=== PATIENT | female | born 1990 | race Caucasian/White ===

== ENCOUNTER 2016-02-26 15:18 | Emergency (ER) | payer SELFPAY ==
--- NOTE | 2016-02-26 15:32 | ER Document Report ---
ED Medical Screen (RME) - General Stated Complaint: FEVER,SORETHROAT,COUGH Mode of Arrival: Ambulatory Information source: Patient Notes: She presents to the emergency department with complaints of cough congestion sore throat and fever of 104 last night. She reports she took Tylenol this morning. Denies vomiting or diarrhea. Patient reports exposure to strep. I have greeted and performed a rapid initial assessment of this patient. A comprehensive ED assessment and evaluation of the patient, analysis of test results and completion of the medical decision making process will be conducted by additional ED providers. TRAVEL OUTSIDE OF THE [place] IN LAST 30 DAYS: No - Related Data Allergies/Adverse Reactions: ketorolac tromethamine [From Toradol] Allergy (Severe, Verified 02/26/16 15:30) throat and tongue swelling lamotrigine [From Lamictal] Allergy (Severe, Verified 02/26/16 15:30) throat and tongue swelling, headache tramadol [Tramadol] Allergy (Severe, Verified 02/26/16 15:30) Hives & tongue swelling benzonatate [From Tessalon Perles] Adverse Reaction (Mild, Verified 02/26/16 15: 30) Vomiting Past Medical History - Social History Family history: Reviewed & Not Pertinent Pulmonary Medical History: Reports: Hx Asthma, Hx COPD, Hx Pneumonia - 2013 Neurological Medical History: Reports: Hx Migraine Renal/ Medical History: Reports: Hx Kidney Stones, Hx Ovarian Cysts - Not substantiated on multiple ultrasounds here GI Medical History: Reports: Hx Gastroesophageal Reflux Disease Musculoskeltal Medical History: Reports Hx Musculoskeletal Trauma Psychiatric Medical History: Reports: Hx Attention Deficit Hyperactivity Disorder, Hx Bipolar Disorder, Hx Depression Traumatic Medical History: Reports: Hx Fractures Past Surgical History: Reports: Hx Cholecystectomy - 10-25-14. Denies: Hx Mastectomy, Hx Open Heart Surgery - Immunizations Immunizations up to date: Yes Hx Diphtheria, Pertussis, Tetanus Vaccination: Yes - 11/15/12
--- NOTE | 2016-02-26 16:31 | ER Document Report ---
HPI - HPI Patient complains to provider of: sore throat, cough, fever Onset: Other - 2 days Pain Level: 5 Context: 25-year-old smoker complaining of head congestion and chest congestion , cough, sore throat , fever of 104.1 at home. Chest pain or shortness of breath. She does not have any inhaled bronchodilators at home. History of asthma, COPD , pneumonia. Associated Symptoms: None Exacerbated by: Denies Relieved by: Denies Similar symptoms previously: Yes Recently seen / treated by doctor: No - ROS ROS below otherwise negative: Yes Systems Reviewed and Negative: Yes All other systems reviewed and negative - REPRODUCTIVE Reproductive: DENIES: : - DERM Skin Color: Normal Past Medical History - General Information source: Patient - Social History Smoking Status: Current Every Day Smoker Chew tobacco use (# tins/day): No Frequency of alcohol use: None Drug Abuse: None Lives with: Family Family History: Arthritis, CAD, CVA, DM, Hyperlipidemia, Hypertension, Malignancy, Thyroid Disfunction Patient has suicidal ideation: No Patient has homicidal ideation: No Pulmonary Medical History: Reports: Hx Asthma, Hx COPD, Hx Pneumonia - 2013 Neurological Medical History: Reports: Hx Migraine Renal/ Medical History: Reports: Hx Kidney Stones, Hx Ovarian Cysts - Not substantiated on multiple ultrasounds here. Denies: Hx Peritoneal Dialysis GI Medical History: Reports: Hx Gastroesophageal Reflux Disease Musculoskeltal Medical History: Reports Hx Musculoskeletal Trauma Psychiatric Medical History: Reports: Hx Attention Deficit Hyperactivity Disorder, Hx Bipolar Disorder, Hx Depression Traumatic Medical History: Reports: Hx Fractures Past Surgical History: Reports: Hx Cholecystectomy - 10-25-14. Denies: Hx Mastectomy, Hx Open Heart Surgery - Immunizations Immunizations up to date: Yes Hx Diphtheria, Pertussis, Tetanus Vaccination: Yes - 11/15/12 Hx Pneumococcal Vaccination: 11/15/12 Vertical Provider Document - CONSTITUTIONAL Agree With Documented VS: Yes Exam Limitations: No Limitations - INFECTION CONTROL TRAVEL OUTSIDE OF THE [place] IN LAST 30 DAYS: No - HEENT HEENT: Normocephalic - NECK Neck: Supple. negative: Lymphadenopathy-Left, Lymphadenopathy-Right - RESPIRATORY Respiratory: No Respiratory Distress, Wheezing - Expiratory on the left. negative: Rales O2 Sat by Pulse Oximetry: 97 - CARDIOVASCULAR Cardiovascular: Regular Rate, Regular Rhythm - GI/ABDOMEN Gastrointestinal: Abdomen Soft, Abdomen Non-Tender, No Organomegaly - BACK Back: Normal Inspection. negative: CVA Tenderness-Right, CVA Tenderness-Left - MUSCULOSKELETAL/EXTREMETIES Musculoskeletal/Extremeties: MAEW, FROM, Non-Tender Course - Re-evaluation Re-evalutation: 02/26/16 16:48 Rapid strep is negative. There is expiratory wheezing on the left. ordered duoneb, chest xray. 02/26/16 17:50 Lungs clear after treatment. X-rays negative - Vital Signs Vital signs: Temp Pulse Resp BP Pulse Ox 98.4 F 93 18 133/86 H 97 02/26/16 15:30 02/26/16 15:30 02/26/16 15:30 02/26/16 15:30 02/26/16 15:30 Discharge - Discharge Clinical Impression: Bronchitis, fever at home, Sore throat Condition: Good Disposition: HOME, SELF-CARE Instructions: Stop Smoking ([facility]), Bronchitis With Bronchospasm (Wheezing) ([facility]) , Inhaled Bronchodilators ([facility]), Steroid Medication, Acetaminophen, Fever ([facility]) Additional Instructions: to er if worse Stop smoking Drink plenty of fluids Use the inhaler throat culture pending Prescriptions: Albuterol Sulfate [Proair HFA Inhalation Aerosol 8.5 gm MDI] 2 puff IH Q3HP PRN #1 [email or web address] PRN Reason: Forms: Return to Work Referrals: SISI SHERWOOD MD [Primary Care Provider] - Follow up as needed
[2016-02-26] MEDS ORDERED: IPRATROPIUM/ALBUTEROL 0.5-2.5 MG/3 ML AMPUL NEB ONE (16:37)
[2016-02-26] MEDS ORDERED: PREDNISONE 20 MG TABLET PO ONE (16:48)
[2016-02-26] MEDS ORDERED: ALBUTEROL SULFATE HFA (90 MCG/PUFF) 200 PUFF/8.5 GM MDI IH ONE (17:54)
[2016-02-26 18:07] VITALS: BP 130/72
== END 2016-02-26 18:00 | disposition home or self-care (01) ==
LOC: ER 15:18
DX: J40 Bronchitis, not specified as acute or chronic (principal); R50.9 Fever, unspecified; J02.9 Acute pharyngitis, unspecified; R05 Cough; R06.02 Shortness of breath; R07.9 Chest pain, unspecified; F17.210 Nicotine dependence, cigarettes, uncomplicated
CPT/HCPCS: 94640; 99283; 87070; 87880; 71020; J7512; J3490; J7620

== ENCOUNTER 2016-04-14 14:27 | Emergency (ER) | payer OTHER ==
--- NOTE | 2016-04-14 14:48 | ER Document Report ---
ED Medical Screen (RME) - General Stated Complaint: STOMACH PAIN Time seen by provider: 14:44 Mode of Arrival: Ambulatory Information source: Patient Notes: 25-year-old is complaining of pelvic pain and cramping with bleeding every other week since her Nexplanon was taken out in February. Home test was negative. I have greeted and performed a rapid initial assessment of this patient. A comprehensive ED assessment, evaluation of the patient, analysis of test results , and completion of the medical decision making process will be conducted by additional ED providers. TRAVEL OUTSIDE OF THE [place] IN LAST 30 DAYS: No - Related Data Allergies/Adverse Reactions: ketorolac tromethamine [From Toradol] Allergy (Severe, Verified 04/14/16 14:42) throat and tongue swelling lamotrigine [From Lamictal] Allergy (Severe, Verified 04/14/16 14:42) throat and tongue swelling, headache tramadol [Tramadol] Allergy (Severe, Verified 04/14/16 14:42) Hives & tongue swelling benzonatate [From Tessalon Perles] Adverse Reaction (Mild, Verified 04/14/16 14: 42) Vomiting Past Medical History - Social History Family history: Reviewed & Not Pertinent Pulmonary Medical History: Reports: Hx Asthma, Hx COPD, Hx Pneumonia - 2013 Neurological Medical History: Reports: Hx Migraine Renal/ Medical History: Reports: Hx Kidney Stones, Hx Ovarian Cysts - Not substantiated on multiple ultrasounds here. Denies: Hx Peritoneal Dialysis GI Medical History: Reports: Hx Gastroesophageal Reflux Disease Musculoskeltal Medical History: Reports Hx Musculoskeletal Trauma Psychiatric Medical History: Reports: Hx Attention Deficit Hyperactivity Disorder, Hx Bipolar Disorder, Hx Depression Traumatic Medical History: Reports: Hx Fractures Past Surgical History: Reports: Hx Cholecystectomy - 10-25-14. Denies: Hx Mastectomy, Hx Open Heart Surgery - Immunizations Immunizations up to date: Yes Hx Diphtheria, Pertussis, Tetanus Vaccination: Yes - 11/15/12 Physical Exam - Vital signs Vitals: Temp Pulse Resp BP Pulse Ox 98.2 F 87 16 120/73 97 04/14/16 14:32 04/14/16 14:32 04/14/16 14:32 04/14/16 14:32 04/14/16 14:32 Course - Vital Signs Vital signs: Temp Pulse Resp BP Pulse Ox 98.2 F 87 16 120/73 97 04/14/16 14:32 04/14/16 14:32 04/14/16 14:32 04/14/16 14:32 04/14/16 14:32
[2016-04-14 15:24] LABS: ABSOLUTE EOSINOPHILS # (AUTO) 0.2 10^3/uL (0.0-0.6); ABSOLUTE LYMPHOCYTES (AUTO) 2.3 10^3/uL (0.5-4.7); ABSOLUTE MONOCYTES (AUTO) 0.6 10^3/uL (0.1-1.4); ABSOLUTE NEUT (AUTO) 5.3 10^3/uL (1.7-8.2); BASOPHILS % (AUTO) 0.3 % (0-2); EOSINOPHILS % (AUTO) 2.6 % (0-6); HEMATOCRIT 43.3 % (36.0-47.0); HEMOGLOBIN 14.6 g/dL (12.0-15.5); HGB HCT DIFFERENCE 0.5; LYMPHOCYTES % (AUTO) 26.8 % (13-45); MEAN CORPUSCULAR HEMOGLOBIN 29.3 pg (27.0-33.4); MEAN CORPUSCULAR HGB CONC 33.8 g/dL (32.0-36.0); MEAN CORPUSCULAR VOLUME 87 fl (80-97); MONOCYTES % (AUTO) 7.5 % (3-13); RED BLOOD COUNT 4.99 10^6/uL (3.72-5.28); RED CELL DISTRIBUTION WIDTH 14.1 % (11.5-14.0); SEGMENTED NEUTROPHILS % (AUTO) 62.8 % (42-78); WHITE BLOOD COUNT 8.4 10^3/uL (4.0-10.5)
[2016-04-14 15:27] LABS: APPEARANCE,URINE CLEAR; BILIRUBIN,URINE NEGATIVE (NEGATIVE); GLUCOSE, URINE NEGATIVE (NEGATIVE); KETONES,URINE NEGATIVE (NEGATIVE); LEUKOCYTE ESTERASE,URINE NEGATIVE (NEGATIVE); NITRITE,URINE NEGATIVE (NEGATIVE); PROTEIN,URINE NEGATIVE (NEGATIVE); URINE SPECIFIC GRAVITY 1.013; UROBILINOGEN,URINE NEGATIVE mg/dL (<2.0)
[2016-04-14 16:55] LABS: CHLAM PCR DETECTED (NOT DETECT)
--- NOTE | 2016-04-14 18:48 | ER Document Report ---
ED General - General Chief Complaint: Lower Abdominal Pain Stated Complaint: STOMACH PAIN Mode of Arrival: Ambulatory Information source: Patient Notes: This is a 25-year-old female who presents with nausea vomiting and diarrhea for the past 2 days. Of note she states she had a fever at home today of 103. She denies any recent travel. She has not vomited in the past several hours. Of note she also reports heavy vaginal bleeding. She states that since having her control Implanon removed 2 months ago she has had irregular bleeding which has occurred about every 2 weeks. TRAVEL OUTSIDE OF THE [place] IN LAST 30 DAYS: No - Related Data Allergies/Adverse Reactions: ketorolac tromethamine [From Toradol] Allergy (Severe, Verified 04/14/16 14:42) throat and tongue swelling lamotrigine [From Lamictal] Allergy (Severe, Verified 04/14/16 14:42) throat and tongue swelling, headache tramadol [Tramadol] Allergy (Severe, Verified 04/14/16 14:42) Hives & tongue swelling benzonatate [From Tessalon Perles] Adverse Reaction (Mild, Verified 04/14/16 14: 42) Vomiting Past Medical History - General Information source: Patient - Social History Smoking Status: Current Every Day Smoker Chew tobacco use (# tins/day): Yes Family History: Arthritis, CAD, CVA, DM, Hyperlipidemia, Hypertension, Malignancy, Thyroid Disfunction Patient has suicidal ideation: No Patient has homicidal ideation: No Pulmonary Medical History: Reports: Hx Asthma, Hx COPD, Hx Pneumonia - 2013 Neurological Medical History: Reports: Hx Migraine Renal/ Medical History: Reports: Hx Kidney Stones, Hx Ovarian Cysts - Not substantiated on multiple ultrasounds here. Denies: Hx Peritoneal Dialysis GI Medical History: Reports: Hx Gastroesophageal Reflux Disease Musculoskeltal Medical History: Reports Hx Musculoskeletal Trauma Psychiatric Medical History: Reports: Hx Attention Deficit Hyperactivity Disorder, Hx Bipolar Disorder, Hx Depression Traumatic Medical History: Reports: Hx Fractures Past Surgical History: Reports: Hx Cholecystectomy - 10-25-14. Denies: Hx Mastectomy, Hx Open Heart Surgery - Immunizations Immunizations up to date: Yes Hx Diphtheria, Pertussis, Tetanus Vaccination: Yes - 11/15/12 Hx Pneumococcal Vaccination: 11/15/12 Review of Systems - Review of Systems Notes: REVIEW OF SYSTEMS: CONSTITUTIONAL : Denies recent illness. Fever today as per history of present illness EENT: Denies eye, ear, throat, or mouth pain or symptoms. Denies nasal or sinus congestion. CARDIOVASCULAR: Denies chest pain. RESPIRATORY: Denies cough, cold, or chest congestion. Denies shortness of breath, difficulty breathing, or wheezing. GASTROINTESTINAL: As per history of present illness GENITOURINARY: Denies difficulty urinating, painful urination, burning, frequency, or blood in urine. FEMALE GENITOURINARY: As per history of present illness MUSCULOSKELETAL: Denies neck or back pain or joint pain or swelling. SKIN: Denies rash or skin lesions. HEMATOLOGIC : Denies easy bruising or bleeding. LYMPHATIC: Denies swollen, enlarged glands. NEUROLOGICAL: Denies altered mental status or loss of consciousness. Denies headache. PSYCHIATRIC: Denies anxiety or stress or depression. ALL OTHER SYSTEMS REVIEWED AND NEGATIVE. Physical Exam - Vital signs Vitals: Temp Pulse Resp BP Pulse Ox 98.2 F 87 16 120/73 97 04/14/16 14:32 04/14/16 14:32 04/14/16 14:32 04/14/16 14:32 04/14/16 14:32 - Notes Notes: PHYSICAL EXAMINATION: GENERAL: Well-appearing, well-nourished and in no acute distress. Pleasant and conversant HEAD: Atraumatic, normocephalic. EYES: Pupils equal round and reactive to light, extraocular movements intact, sclera anicteric, conjunctiva are normal. ENT: nares patent, oropharynx clear without exudates. Moist mucous membranes. NECK: Normal range of motion, supple without lymphadenopathy LUNGS: Breath sounds clear to auscultation bilaterally and equal. No wheezes rales or rhonchi. HEART: Regular rate and rhythm without murmurs ABDOMEN: Soft, nontender, normoactive bowel sounds. No guarding, no rebound. No masses appreciated. PELVIC: No external lesions. Mild amount of blood in vault, no clots or tissue. Os closed. No CMT. Mild R adnexal TTP, no mass, no L adnexal TTP or mass EXTREMITIES: Normal range of motion, no pitting or edema. No cyanosis. NEUROLOGICAL: Cranial nerves grossly intact. Normal speech. No gross focal motor or sensory deficits appreciated PSYCH: Normal mood, normal affect. SKIN: Warm, Dry, normal turgor, no rashes or lesions noted. Course - Re-evaluation Re-evalutation: 04/14/16 22:32 Patient has remained hemodynamically stable in the ER and has tolerated food by mouth. She will be treated for her chlamydia. She is instructed to follow-up with [facility] for her irregular menses. At this time her exam and laboratory evaluation are reassuring. Treat her nausea and vomiting with Phenergan. Strict return precautions were discussed. - Vital Signs Vital signs: Temp Pulse Resp BP Pulse Ox 98.7 F 63 16 104/57 L 99 04/14/16 22:46 04/14/16 22:46 04/14/16 22:46 04/14/16 22:46 04/14/16 22:46 - Laboratory Result Diagrams: 04/14/16 15:00 04/14/16 15:00 Laboratory results interpreted by me: 04/14/16 04/14/16 04/14/16 15:00 15:00 15:00 RDW 14.1 H Glucose Urine Blood MODERATE H Chlamydia DNA (PCR) DETECTED H 04/14/16 04/14/16 15:00 19:20 RDW Glucose 71 L Urine Blood Chlamydia DNA (PCR) DETECTED H - Diagnostic Test Radiology reviewed: Reports reviewed - Transvaginal ultrasound demonstrates small right ovarian cyst and no other acute abnormality. Discharge - Discharge Clinical Impression: Vomiting and diarrhea, Chlamydia, Irregular menstrual bleeding, Right ovarian cyst Condition: Stable Disposition: HOME, SELF-CARE Additional Instructions: VAGINAL BLEEDING: You are having an episode of abnormal bleeding. Causes of abnormal vaginal bleeding can include miscarriage or tubal , tumors such as cancer or benign fibroids, medication effects, or hormone imbalance. Testing can eliminate unsuspected , tumors, or infection as a cause. "Dysfunctional uterine bleeding" is due to hormone imbalance, and is especially common at times when the normal cycle is disturbed -- whether by recent , use of control pills or hormones, or impending menopause. If the bleeding is innocent, most commonly a short course of hormones is given to restore the uterus to normal. Sometimes, the normal menstrual cycle corrects itself naturally. Sometimes , brief hormone therapy, or even a D&C is required. Your physician will advise you. Treatment for anemia may be required if bleeding is severe. You should rest and avoid intercourse until the bleeding is controlled. Call the doctor or return for re-examination if you feel faint, have increasing pain, or have a major increase in the amount of bleeding. Chlamydia You have a chlamydia infection. Chlamydia is a germ that grows inside the cells of the mucous membranes. It often infects the eyes, urethra, and fallopian tubes. It can cause chronic pain and scar tissue if untreated. Antibiotics are used to treat chlamydia. It's important to take all the medicine even if there are no symptoms. Use condoms to prevent spread of the infection. Because this infection can spread by sexual contact, it's important that your sexual partner be checked before resuming sexual relations. A positive test for chlamydia has to be reported to the health department. Call the doctor or return at once if you develop increasing fever, rash, severe pelvic pain, vaginal bleeding (other than your period), or problems with your bladder or bowels. NORMAL EXAM AND WORKUP: At this time, except for vaginal bleeding, your examination and workup show no significant abnormality. No significant abnormal physical findings were noted. All laboratory, EKG, and imaging (x-ray, CT scans, ultrasound) studies that were ordered show no significant abnormality. Although your examination and all studies that were ordered showed no significant abnormal finding, there are no examinations and no studies that are 100% accurate. There is always the possibility that some abnormality could exist and not be detected with physical examination or within the limits and capabilities of laboratory and other studies. You should return or follow up as you were instructed on your visit today for further evaluation if your symptoms do not resolve. VIRAL SYNDROME: The physician has diagnosed a viral infection. Viruses not only cause "colds," but can cause many different symptoms including generalized aching, fever, headache, cough, diarrhea, nausea, vomiting, and fatigue. The treatment, for the most part, is simply relief of symptoms. This means that antibiotics are usually not given. Rest, fluids, pain medications and, occasionally, medication for the specific symptoms that are most bothersome will be prescribed. Use good handwashing to avoid passing the virus to others. Shared toys should be cleaned with disinfectant. Clean the toilets, sinks, and counter surfaces in bathrooms. Launder clothing in hot water. Contact the physician if you develop any new or unusual symptoms such as severe headache, stiff neck, high fever, chest pain, productive cough, or shortness of breath. You should be rechecked if you don't see marked improvement within seven to 10 days. ANT[place] MEDICATION: You have been given a medication to suppress nausea and vomiting. This type of medication can be given as a shot, pill, or suppository. It will usually last for many hours. Pills and shots usually last six to eight hours. For the typical illness, only one or two doses of the medication may be necessary. Mild lightheadedness may occur. This type of medicine can cause drowsiness. Do not drive or operate dangerous machinery while under its influence. Do not mix with alcohol. See your doctor at once if you have muscle spasms or tightness, or uncontrollable motions (particularly of the neck, mouth, or jaw). Persistent vomiting or severe lightheadedness should also be evaluated by the physician. FOLLOW-UP CARE: If you have been referred to a physician for follow-up care, call the physician s office for an appointment as you were instructed or within the next two days. If you experience worsening or a significant change in your symptoms (very heavy bleeding with large clots of blood, passage of tissue, more severe abdominal / pelvic pain or cramping, feeling faint or severe weakness, fever, etc.), notify the physician immediately or return to the Emergency Department at any time for re-evaluation. [facility]ST[facility]GYNECOLOG[facility] ([employer]CIAL EDUCATION INCLUSION TE[employer]) [facility]YSICI[facility] IN [place]: [facility] [address], [place] [phone] [facility] [address] [place] [address] [phone] Prescriptions: Promethazine HCl [Phenergan 25 mg Tablet] 1 tab PO Q6H PRN #15 tablet PRN Reason: Forms: Return to Work
[2016-04-14] MEDS ORDERED: ONDANSETRON 4 MG TAB.RAPDIS PO ONE (19:28)
[2016-04-14] MEDS ORDERED: IBUPROFEN 800 MG TABLET PO ONE (19:28)
[2016-04-14] MEDS ORDERED: CEFTRIAXONE INJ 250 MG VIAL IM ONE (20:05)
[2016-04-14] MEDS ORDERED: AZITHROMYCIN 1 GM SUSP PACKET PO ONE (20:06)
[2016-04-14 20:30] LABS: ANION GAP 12 (5-19); BLOOD UREA NITROGEN 10 mg/dL (7-20); CALCIUM 9.9 mg/dL (8.4-10.2); CARBON DIOXIDE 27 mmol/L (22-30); CHLORIDE 103 mmol/L (98-107); CREATININE RESULT 0.73 mg/dL (0.52-1.25); GLUCOSE 71 mg/dL (75-110); SODIUM 142.3 mmol/L (137-145)
[2016-04-14] MEDS ORDERED: LIDOCAINE 1% INJ-PF (10 MG/ML) 30 ML SDV INJ ONE (20:40)
[2016-04-14 22:20] LABS: CHLAM PCR DETECTED (NOT DETECT)
[2016-04-14] MEDS ORDERED: PROMETHAZINE HCL 25 MG TABLET PO ONE (22:40)
[2016-04-14 22:50] VITALS: BP 104/57
== END 2016-04-14 22:51 | disposition home or self-care (01) ==
LOC: ER 14:27
DX: N83.201 Unspecified ovarian cyst, right side (principal); N93.9 Abnormal uterine and vaginal bleeding, unspecified; A74.9 Chlamydial infection, unspecified; R10.30 Lower abdominal pain, unspecified; R11.2 Nausea with vomiting, unspecified; R19.7 Diarrhea, unspecified; F17.210 Nicotine dependence, cigarettes, uncomplicated
CPT/HCPCS: 99284; 96372; 36415; 87086; 87210; 84703; 85025; 80048; 81001; 87491; 87591; 76830; S0119; J3490; Q0144; J0696

== ENCOUNTER 2016-08-09 18:11 | Emergency (ER) | payer SELFPAY ==
--- NOTE | 2016-08-09 19:07 | ER Document Report ---
ED Medical Screen (RME) - General Chief Complaint: Vaginal Bleeding Stated Complaint: VAGINAL BLEEDING,ABDOMINAL PAIN Time Seen by Provider: 08/09/16 19:05 Notes: The patient is a 25 yo female, LMP 07/02/16 (5 weeks ), presents with 1 day of vaginal spotting, brownish discharge and lower abdominal cramping. Her blood type is O+. She took a positive test last week. Denies nausea, vomiting, headache or flank pain. PE: NAD. Mild suprapubic tenderness. Normal bowel sounds. I have greeted and performed a rapid initial assessment of this patient. A comprehensive ED assessment and evaluation of the patient, analysis of test results and completion of the medical decision making process will be conducted by additional ED providers. TRAVEL OUTSIDE OF THE [place] IN LAST 30 DAYS: No - Related Data Allergies/Adverse Reactions: ketorolac tromethamine [From Toradol] Allergy (Severe, Verified 08/09/16 18:17) throat and tongue swelling lamotrigine [From Lamictal] Allergy (Severe, Verified 08/09/16 18:17) throat and tongue swelling, headache tramadol [Tramadol] Allergy (Severe, Verified 08/09/16 18:17) Hives & tongue swelling benzonatate [From Tessalon Perles] Adverse Reaction (Mild, Verified 08/09/16 18: 17) Vomiting Past Medical History - General Information source: Patient Last Menstrual Period: 07/02/16 - Social History Chew tobacco use (# tins/day): No Frequency of alcohol use: None Drug Abuse: None Family history: Reviewed & Not Pertinent Pulmonary Medical History: Reports: Hx Asthma, Hx COPD, Hx Pneumonia - 2013 Neurological Medical History: Reports: Hx Migraine Renal/ Medical History: Reports: Hx Kidney Stones, Hx Ovarian Cysts - Not substantiated on multiple ultrasounds here. Denies: Hx Peritoneal Dialysis GI Medical History: Reports: Hx Gastroesophageal Reflux Disease Musculoskeltal Medical History: Reports Hx Musculoskeletal Trauma Psychiatric Medical History: Reports: Hx Attention Deficit Hyperactivity Disorder, Hx Bipolar Disorder, Hx Depression Traumatic Medical History: Reports: Hx Fractures Past Surgical History: Reports: Hx Cholecystectomy - 10-25-14. Denies: Hx Mastectomy, Hx Open Heart Surgery - Immunizations Immunizations up to date: Yes Hx Diphtheria, Pertussis, Tetanus Vaccination: Yes - 11/15/12 Physical Exam - Vital signs Vitals: Temp Pulse Resp BP Pulse Ox 98.8 F 115 H 16 160/80 H 95 08/09/16 18:16 08/09/16 18:16 08/09/16 18:16 08/09/16 18:16 08/09/16 18:16 Course - Vital Signs Vital signs: Temp Pulse Resp BP Pulse Ox 98.8 F 115 H 16 160/80 H 95 08/09/16 18:16 08/09/16 18:16 08/09/16 18:16 08/09/16 18:16 08/09/16 18:16
[2016-08-09] MEDS ORDERED: ACETAMINOPHEN 325 MG TABLET PO ONE (19:23)
--- NOTE | 2016-08-09 20:25 | ER Document Report ---
ED General - General Chief Complaint: Vaginal Bleeding Stated Complaint: VAGINAL BLEEDING,ABDOMINAL PAIN Time Seen by Provider: 08/09/16 19:05 Mode of Arrival: Ambulatory Information source: Patient TRAVEL OUTSIDE OF THE [place] IN LAST 30 DAYS: No - HPI Notes: The patient is a 25 yo female, LMP 07/02/16 (5 weeks ), presents with 1 day of vaginal spotting, brownish discharge and lower abdominal cramping. Her blood type is O+. She took a positive test last week. Denies nausea, vomiting, headache or flank pain. Patient reports no recent heavy lifting or intercourse. Patient denies any significant fever or chills. - Related Data Allergies/Adverse Reactions: ketorolac tromethamine [From Toradol] Allergy (Severe, Verified 08/09/16 18:17) throat and tongue swelling lamotrigine [From Lamictal] Allergy (Severe, Verified 08/09/16 18:17) throat and tongue swelling, headache tramadol [Tramadol] Allergy (Severe, Verified 08/09/16 18:17) Hives & tongue swelling benzonatate [From Tessalon Perles] Adverse Reaction (Mild, Verified 08/09/16 18: 17) Vomiting Past Medical History - General Information source: Patient Last Menstrual Period: 07/02/16 - Social History Smoking Status: Current Every Day Smoker Chew tobacco use (# tins/day): No Frequency of alcohol use: None Drug Abuse: None Lives with: Family Family History: Arthritis, CAD, CVA, DM, Hyperlipidemia, Hypertension, Malignancy, Thyroid Disfunction Pulmonary Medical History: Reports: Hx Asthma, Hx COPD, Hx Pneumonia - 2013 Neurological Medical History: Reports: Hx Migraine Renal/ Medical History: Reports: Hx Kidney Stones, Hx Ovarian Cysts - Not substantiated on multiple ultrasounds here. Denies: Hx Peritoneal Dialysis GI Medical History: Reports: Hx Gastroesophageal Reflux Disease Musculoskeltal Medical History: Reports Hx Musculoskeletal Trauma Psychiatric Medical History: Reports: Hx Attention Deficit Hyperactivity Disorder, Hx Bipolar Disorder, Hx Depression Traumatic Medical History: Reports: Hx Fractures Past Surgical History: Reports: Hx Cholecystectomy - 10-25-14. Denies: Hx Mastectomy, Hx Open Heart Surgery - Immunizations Immunizations up to date: Yes Hx Diphtheria, Pertussis, Tetanus Vaccination: Yes - 11/15/12 Hx Pneumococcal Vaccination: 10/08/13 Review of Systems - Review of Systems Notes: REVIEW OF SYSTEMS: CONSTITUTIONAL : Denies fever, chills, or sweats. Denies recent illness. EENT: Denies eye, ear, throat, or mouth pain or symptoms. Denies nasal or sinus congestion or discharge. Denies throat, tongue, or mouth swelling or difficulty swallowing. CARDIOVASCULAR: Denies chest pain. Denies palpitations or racing or irregular heart beat. Denies ankle edema. RESPIRATORY: Denies cough, cold, or chest congestion. Denies shortness of breath, difficulty breathing, or wheezing. GASTROINTESTINAL: Denies abdominal distention. Denies nausea, vomiting, or diarrhea. Denies blood in vomitus, stools, or per rectum. Denies black, tarry stools. Denies constipation. GENITOURINARY: Denies difficulty urinating, painful urination, burning, frequency, blood in urine, or discharge. FEMALE GENITOURINARY: Denies heavy or abnormal periods, irregular periods. Denies vaginal discharge or odor. MUSCULOSKELETAL: Denies back or neck pain or stiffness. Denies joint pain or swelling. SKIN: Denies rash, lesions or sores. HEMATOLOGIC : Denies easy bruising or bleeding. LYMPHATIC: Denies swollen, enlarged glands. NEUROLOGICAL: Denies confusion or altered mental status. Denies passing out or loss of consciousness. Denies dizziness or lightheadedness. Denies headache. Denies weakness or paralysis or loss of use of either side. Denies problems with gait or speech. Denies sensory loss, numbness, or tingling. Denies seizures. PSYCHIATRIC: Denies anxiety or stress. Denies depression, suicidal ideation, or homicidal ideation. ALL OTHER SYSTEMS REVIEWED AND NEGATIVE. Dictation was performed using [employer] voice recognition software Physical Exam - Vital signs Vitals: Temp Pulse Resp BP Pulse Ox 98.8 F 115 H 16 160/80 H 95 08/09/16 18:16 08/09/16 18:16 08/09/16 18:16 08/09/16 18:16 08/09/16 18:16 - Notes Notes: PHYSICAL EXAMINATION: GENERAL: Well-appearing, well-nourished and in no acute distress. HEAD: Atraumatic, normocephalic. EYES: Pupils equal round and reactive to light, extraocular movements intact, conjunctiva are normal. ENT: Nares patent, oropharynx clear without exudates. Moist mucous membranes. NECK: Normal range of motion, supple without lymphadenopathy LUNGS: Breath sounds clear to auscultation bilaterally and equal. No wheezes rales or rhonchi. HEART: Regular rate and rhythm without murmurs ABDOMEN: Soft, nondistended abdomen. No guarding, no rebound. No masses appreciated. Very mild tenderness to the suprapubic region. Female : Normal external female genitalia. Cervix is benign without lesion. No significant cervical motion tenderness noted on exam. No adnexal mass or tenderness noted. There is mild uterine tenderness noted. There is dark blood noted in the posterior fornix. No significant active bleeding is noted currently. Musculoskeletal: Normal range of motion, no pitting or edema. No cyanosis. No CVA tenderness. NEUROLOGICAL: Cranial nerves grossly intact. Normal speech, normal gait. Normal sensory, motor exams PSYCH: Normal mood, normal affect. SKIN: Warm, Dry, normal turgor, no rashes or lesions noted. Course - Re-evaluation Re-evalutation: 08/09/16 21:59 Bleeding seemed minimal at best. There is no suggestion for significant anemia or sepsis or suggestion for PID. No unilateral pain suggestive for an ectopic that ruptured, but I cannot completely exclude ectopic based upon the current ultrasound results and hCG quantitative levels. Patient will need follow-up evaluation and blood work and possible follow-up ultrasound studies and she is aware of this. She will return in 48 hours for repeat blood work and [facility] where she has a pre-existing relationship. Urine culture ordered and patient will be started on Macrobid. 08/09/16 22:00 - Vital Signs Vital signs: Temp Pulse Resp BP Pulse Ox 98.8 F 115 H 16 160/80 H 95 08/09/16 18:16 08/09/16 18:16 08/09/16 18:16 08/09/16 18:16 08/09/16 18:16 - Laboratory Result Diagrams: 08/09/16 19:15 Laboratory results interpreted by me: 08/09/16 08/09/16 08/09/16 19:15 19:15 19:15 WBC 10.9 H Seg Neutrophils % 82.9 H Lymphocytes % 10.2 L Absolute Neutrophils 9.0 H Serum HCG, Qual POSITIVE H Beta HCG, Quant 3309.20 H Urine Protein Urine Ketones Urine Blood Ur Leukocyte Esterase 08/09/16 20:10 WBC Seg Neutrophils % Lymphocytes % Absolute Neutrophils Serum HCG, Qual Beta HCG, Quant Urine Protein 30 H Urine Ketones 20 H Urine Blood LARGE H Ur Leukocyte Esterase TRACE H Discharge - Discharge Clinical Impression: Threatened miscarriage in early Urinary tract infection Qualifiers: Urinary tract infection type: site unspecified Hematuria presence: without hematuria Qualified Code(s): N39.0 - Urinary tract infection, site not specified Condition: Stable Disposition: HOME, SELF-CARE Instructions: Threatened Miscarriage ([facility]), Ob-[employer] [facility], Urinary Tract Infection ([facility]) Additional Instructions: Drink plenty fluids. Return to the ED in case of severe bleeding soaking more than 2 pads per hour or severe pain or fever. You need to follow-up on Wednesday morning with [facility], come into the emergency department 2 hours prior to following up with [facility] for repeat blood work to assess the hormone level. Do not use tampons. No intercourse. Prescriptions: Nitrofurantoin/Nitrofuran Mac [Macrobid 100 mg Capsule] 1 tab PO BID #16 capsule Forms: Follow-Up Laboratory Testing, Return to Work Referrals: ELDA VERDUGO MD [Primary Care Provider] - Follow up as needed
[2016-08-09 20:34] LABS: AMORPHOUS SEDIMENT,URINE 2+ /HPF; APPEARANCE,URINE TURBID; BILIRUBIN,URINE NEGATIVE (NEGATIVE); GLUCOSE, URINE NEGATIVE (NEGATIVE); KETONES,URINE 20 mg/dL (NEGATIVE); LEUKOCYTE ESTERASE,URINE TRACE (NEGATIVE); NITRITE,URINE NEGATIVE (NEGATIVE); PROTEIN,URINE 30 mg/dL (NEGATIVE); URINE SPECIFIC GRAVITY 1.031; UROBILINOGEN,URINE NEGATIVE mg/dL (<2.0)
[2016-08-09 20:39] LABS: ABSOLUTE LYMPHOCYTES (AUTO) 1.1 10^3/uL (0.5-4.7); ABSOLUTE MONOCYTES (AUTO) 0.7 10^3/uL (0.1-1.4); BASOPHILS % (AUTO) 0.3 % (0-2); EOSINOPHILS % (AUTO) 0.4 % (0-6); HEMATOCRIT 45.4 % (36.0-47.0); HEMOGLOBIN 14.9 g/dL (12.0-15.5); HGB HCT DIFFERENCE -0.7; LYMPHOCYTES % (AUTO) 10.2 % (13-45); MEAN CORPUSCULAR HEMOGLOBIN 28.2 pg (27.0-33.4); MEAN CORPUSCULAR HGB CONC 32.8 g/dL (32.0-36.0); MEAN CORPUSCULAR VOLUME 86 fl (80-97); MONOCYTES % (AUTO) 6.2 % (3-13); RED BLOOD COUNT 5.28 10^6/uL (3.72-5.28); RED CELL DISTRIBUTION WIDTH 13.4 % (11.5-14.0); SEGMENTED NEUTROPHILS % (AUTO) 82.9 % (42-78); WHITE BLOOD COUNT 10.9 10^3/uL (4.0-10.5)
--- NOTE | 2016-08-09 21:03 | RADIOLOGY REPORT (SQ) ---
EXAM DESCRIPTION: U/S OB TRANSVAGINAL W/O DOP COMPLETED DATE/TIME: 08/09/2016 8:46 pm REASON FOR STUDY: , vaginal bleeding COMPARISON: None. TECHNIQUE: Transvaginal static and realtime grayscale images acquired of the pelvis. Additional rory cted spectral and color Doppler images recorded. All images stored on PACs. BHCG: Pending LIMITATIONS: None. FINDINGS: UTERUS: No visualized intrauterine . Endometrium generally slightly thickened, m easuring up to 1.4 cm. RIGHT ADNEXA: Normal ovary with normal vascular flow. No adnexal free fluid. 4.1 cm slightly septated appearing but otherwise simple cyst. LEFT ADNEXA: Normal ovary with normal vascular flow. No adnexal free fluid. 3 cm simple cyst. FREE FLUID: None. OTHER: No other significant finding. IMPRESSION: NO VISUALIZED INTRA- OR EXTRAUTERINE . ECTOPIC CANNOT BE EXCLUDED. FOLLOW-UP ULTRASOUND AND SERIAL BHCG LEVELS STRONGLY RECOMMENDED TO ACCURATELY ASSESS STATU S. TECHNICAL DOCUMENTATION: JOB ID: [id number]- All Rights Reserved
[2016-08-09] MEDS ORDERED: NITROFURANTOIN MONOHYD/M-CRYST 100 MG CAPSULE PO ONE (21:05)
[2016-08-09 22:44] VITALS: BP 148/73
[2016-08-09 23:13] LABS: CHLAM PCR NOT DETECTED (NOT DETECT)
== END 2016-08-09 21:55 | disposition home or self-care (01) ==
LOC: ER 18:11
DX: O20.0 Threatened abortion (principal); O23.41 Unspecified infection of urinary tract in pregnancy, first trimester; O26.891 Other specified pregnancy related conditions, first trimester; R10.9 Unspecified abdominal pain; O99.331 Smoking (tobacco) complicating pregnancy, first trimester; O99.511 Diseases of the respiratory system complicating pregnancy, first trimester; J44.9 Chronic obstructive pulmonary disease, unspecified; Z3A.01 Less than 8 weeks gestation of pregnancy; Z88.5 Allergy status to narcotic agent; Z88.8 Allergy status to other drugs, medicaments and biological substances; Z90.49 Acquired absence of other specified parts of digestive tract
CPT/HCPCS: 99284; 36415; 87086; 87210; 84702; 84703; 85025; 81001; 87491; 87591; 76817; J8499

== ENCOUNTER 2016-09-09 11:31 | Emergency (ER) | payer SELFPAY ==
[2016-09-09 11:49] VITALS: BP 130/86
[2016-09-09] MEDS ORDERED: OXYCODONE-ACETAMINOPHEN 5-325 MG TABLET PO ONE (13:33)
[2016-09-09] MEDS ORDERED: LIDOCAINE 1% INJ-PF (10 MG/ML) 30 ML SDV INJ ONE (13:34)
--- NOTE | 2016-09-09 13:34 | ER Document Report ---
ED Skin Rash/Insect Bite/Abscs - General Chief Complaint: Abscess Stated Complaint: PAIN,REDNESS AT IV SITE Time Seen by Provider: 09/09/16 13:33 Notes: 25 yo female presents to ED c/o pain and swelling to right forearm. pt had an IV that infiltrated during a DNC on 08/18/16. pt developed an infection and was not able to afford antibiotics. the swelling and pain at the IV site have increased. + fever TRAVEL OUTSIDE OF THE [place] IN LAST 30 DAYS: No - HPI Patient complains to provider of: Tender/swollen area Onset/Duration: Gradual, Persistent, Worse Quality of pain: Pressure Skin Character: Abscess Skin Temperature: Warm Quality of rash: Painful - Related Data Allergies/Adverse Reactions: ketorolac tromethamine [From Toradol] Allergy (Severe, Verified 08/09/16 18:17) throat and tongue swelling lamotrigine [From Lamictal] Allergy (Severe, Verified 08/09/16 18:17) throat and tongue swelling, headache tramadol [Tramadol] Allergy (Severe, Verified 08/09/16 18:17) Hives & tongue swelling benzonatate [From Tessalon Perles] Adverse Reaction (Mild, Verified 08/09/16 18: 17) Vomiting Past Medical History - General Information source: Patient - Social History Smoking Status: Current Every Day Smoker Chew tobacco use (# tins/day): No Frequency of alcohol use: None Drug Abuse: None Lives with: Family Family History: Arthritis, CAD, CVA, DM, Hyperlipidemia, Hypertension, Malignancy, Thyroid Disfunction Patient has suicidal ideation: No Patient has homicidal ideation: No Pulmonary Medical History: Reports: Hx Asthma, Hx Pneumonia - 2013 Denies: Hx COPD Neurological Medical History: Reports: Hx Migraine Renal/ Medical History: Reports: Hx Kidney Stones, Hx Ovarian Cysts - Not substantiated on multiple ultrasounds here. Denies: Hx Peritoneal Dialysis GI Medical History: Reports: Hx Gastroesophageal Reflux Disease Musculoskeltal Medical History: Reports Hx Musculoskeletal Trauma Psychiatric Medical History: Reports: Hx Attention Deficit Hyperactivity Disorder, Hx Bipolar Disorder, Hx Depression Traumatic Medical History: Reports: Hx Fractures Past Surgical History: Reports: Hx Cholecystectomy - 10-25-14, Hx Gynecologic Surgery - DNC on August 18. Denies: Hx Mastectomy, Hx Open Heart Surgery - Immunizations Immunizations up to date: Yes Hx Diphtheria, Pertussis, Tetanus Vaccination: Yes - 11/15/12 Hx Pneumococcal Vaccination: 11/15/12 Review of Systems - Review of Systems Constitutional: Chills, Fever EENT: No symptoms reported Cardiovascular: No symptoms reported Respiratory: No symptoms reported Gastrointestinal: No symptoms reported Genitourinary: No symptoms reported Female Genitourinary: No symptoms reported Musculoskeletal: No symptoms reported Skin: See HPI Hematologic/Lymphatic: No symptoms reported Neurological/Psychological: No symptoms reported Physical Exam - Vital signs Vitals: Temp Pulse Resp BP Pulse Ox 99 F 90 20 130/86 H 98 09/09/16 11:47 09/09/16 11:47 09/09/16 11:47 09/09/16 11:47 09/09/16 11:47 Interpretation: Normal - General General appearance: Appears well, Alert - HEENT Head: Normocephalic, Atraumatic Eyes: Normal Pupils: PERRL - Respiratory Respiratory status: No respiratory distress Chest status: Nontender Breath sounds: Normal Chest palpation: Normal - Cardiovascular Rhythm: Regular Heart sounds: Normal auscultation Murmur: No - Abdominal Inspection: Normal Distension: No distension Bowel sounds: Normal Tenderness: Nontender Organomegaly: No organomegaly - Back Back: Normal, Nontender - Extremities General upper extremity: Normal inspection, Nontender, Normal color, Normal ROM , Normal temperature General lower extremity: Normal inspection, Nontender, Normal color, Normal ROM , Normal temperature, Normal weight bearing. No: Vero's sign - Neurological Neuro grossly intact: Yes Cognition: Normal Orientation: AAOx4 Ankit Coma Scale Eye Opening: Spontaneous Ankit Coma Scale Verbal: Oriented Ankit Coma Scale Motor: Obeys Commands Ankit Coma Scale Total: 15 Speech: Normal Motor strength normal: LUE, RUE, LLE, RLE Sensory: Normal - Psychological Associated symptoms: Normal affect, Normal mood - Skin Skin Temperature: Warm Skin Moisture: Dry Skin Color: Normal Skin irregularity: Abscess Location of irregularity: Extremities - right proximal forearm Character of irregularity: Symmetric Irregularity with: Swelling, Tenderness, Warmth. negative: Lymphangitis Course - Vital Signs Vital signs: Temp Pulse Resp BP Pulse Ox 99 F 90 20 130/86 H 98 09/09/16 11:47 09/09/16 11:47 09/09/16 11:47 09/09/16 11:47 09/09/16 11:47 Procedures - Incision and Drainage right forearm Type: Simple Anesthetic type: 1% Lidocaine I&D procedure: Shurclens applied Incision Method: Incision made by scalpel Discharge - Discharge Clinical Impression: Abscess of right arm Instructions: Abscess ([facility]), Oral Narcotic Medication ([facility]), Trimethoprim- Sulfa ([facility]), Post Incision and Drainage Additional Instructions: return tomorrow for packing removal and recheck take antibiotics as prescribed follow up with primary care Prescriptions: Oxycodone HCl/Acetaminophen [Percocet 5-325 mg Tablet] 1 - 2 tab PO ASDIR PRN # 10 tablet PRN Reason: Sulfamethoxazole/Trimethoprim [Bactrim Ds Tablet] 1 tab PO BID #20 tablet
[2016-09-09] MEDS ORDERED: SULFAMETHOXAZOLE/TRIMETHOPRIM 800-160 MG TABLET PO ONE (14:13)
== END 2016-09-09 14:36 | disposition home or self-care (01) ==
LOC: ER 11:31
PROC: 0H9DXZZ Drainage of Right Lower Arm Skin, External Approach (ICD-10-PCS; principal; 2016-09-09)
DX: L02.413 Cutaneous abscess of right upper limb (principal); F17.200 Nicotine dependence, unspecified, uncomplicated; R50.9 Fever, unspecified; J45.909 Unspecified asthma, uncomplicated; Z88.8 Allergy status to other drugs, medicaments and biological substances; Z88.5 Allergy status to narcotic agent
CPT/HCPCS: 10060; 99283; 87070; 87205; 87075; 87077; 87186; A6266

== ENCOUNTER 2016-09-10 13:17 | Emergency (ER) | payer SELFPAY ==
--- NOTE | 2016-09-10 13:57 | ER Document Report ---
ED Wound - General Chief Complaint: Wound Recheck Stated Complaint: WOUND RECHECK Time Seen by Provider: 09/10/16 13:43 Notes: -year-old female presents to ED for infection to the right anticubital. Patient had a IV on 711 that became infected she was not able to buy the antibiotics that she was prescribed so she came in yesterday and ended up with an I&D the infected area. Today she is back because she was told to follow-up from yesterday's I&D with packing. She states she did buy the Septra and Percocet yesterday but was not able to buy the Keflex. TRAVEL OUTSIDE OF THE [place] IN LAST 30 DAYS: No - HPI Patient complains to provider of: Other - Follow-up abscess Occurred: Other - 08/18/2016 Onset/Duration: Better Quality of pain: Sharp, Throbbing Severity: Severe Pain Level: 5 Skin Color: Normal, Other - Packing intact with some purulent drainage. Patient instructed to remove packing tomorrow. Patient is taking her Bactrim but not her Keflex. Capillary refill: < 3 seconds Sensations intact: Yes Distal pulses present: Yes Associated Symptoms: Drainage, Other - Patient states it is much better than before - Related Data Allergies/Adverse Reactions: ketorolac tromethamine [From Toradol] Allergy (Severe, Verified 09/10/16 13:19) throat and tongue swelling lamotrigine [From Lamictal] Allergy (Severe, Verified 09/10/16 13:19) throat and tongue swelling, headache tramadol [Tramadol] Allergy (Severe, Verified 09/10/16 13:19) Hives & tongue swelling benzonatate [From Tessalon Perles] Adverse Reaction (Mild, Verified 09/10/16 13: 19) Vomiting Past Medical History - General Information source: Patient - Social History Smoking Status: Current Every Day Smoker Cigarette use (# per day): Yes Smoking Education Provided: Yes - Minutes Lives with: Family Family History: Arthritis, CAD, CVA, DM, Hyperlipidemia, Hypertension, Malignancy, Thyroid Disfunction - Past Medical History Cardiac Medical History: Reports: None Pulmonary Medical History: Reports: Hx Asthma, Hx Pneumonia - 2013 EENT Medical History: Reports: None Neurological Medical History: Reports: Hx Migraine Endocrine Medical History: Reports: None Renal/ Medical History: Reports: Hx Kidney Stones, Hx Ovarian Cysts - Not substantiated on multiple ultrasounds here Malignancy Medical History: Reports: None GI Medical History: Reports: Hx Gastroesophageal Reflux Disease Musculoskeltal Medical History: Reports Hx Musculoskeletal Trauma Skin Medical History: Reports Hx Cellulitis Psychiatric Medical History: Reports: Hx Attention Deficit Hyperactivity Disorder, Hx Bipolar Disorder, Hx Depression Traumatic Medical History: Reports: Hx Fractures Infectious Medical History: Reports: None Past Surgical History: Reports: Hx Cholecystectomy - 10-25-14, Hx Gynecologic Surgery - DNC on August 18 - Immunizations Immunizations up to date: Yes Hx Diphtheria, Pertussis, Tetanus Vaccination: Yes - 11/15/12 Hx Pneumococcal Vaccination: 11/15/12 Review of Systems - Review of Systems Constitutional: No symptoms reported EENT: No symptoms reported Cardiovascular: No symptoms reported Respiratory: No symptoms reported Gastrointestinal: No symptoms reported Genitourinary: No symptoms reported Female Genitourinary: No symptoms reported Musculoskeletal: No symptoms reported Skin: Other - Abscess right antecubital Hematologic/Lymphatic: No symptoms reported Neurological/Psychological: No symptoms reported -: Yes All other systems reviewed and negative Physical Exam - Vital signs Vitals: Temp Pulse Resp BP Pulse Ox 98.4 F 86 14 132/83 H 98 09/10/16 13:19 09/10/16 13:19 09/10/16 13:19 09/10/16 13:19 09/10/16 13:19 Interpretation: Normal - General General appearance: Appears well, Alert - HEENT Head: Normocephalic, Atraumatic Eyes: Normal Pupils: PERRL - Respiratory Respiratory status: No respiratory distress Chest status: Nontender Breath sounds: Normal Chest palpation: Normal - Cardiovascular Rhythm: Regular Heart sounds: Normal auscultation Murmur: No - Abdominal Inspection: Normal Distension: No distension Bowel sounds: Normal Tenderness: Nontender Organomegaly: No organomegaly - Back Back: Normal, Nontender - Extremities General upper extremity: Normal color, Normal ROM, Normal temperature General lower extremity: Normal inspection, Nontender, Normal color, Normal ROM , Normal temperature, Normal weight bearing. No: Vero's sign Elbow: Tender, Other - Abscess to right antecubital packed dressing intact. - Neurological Neuro grossly intact: Yes Cognition: Normal Orientation: AAOx4 [place] Coma Scale Eye Opening: Spontaneous Ankit Coma Scale Verbal: Oriented Ankit Coma Scale Motor: Obeys Commands [place] Coma Scale Total: 15 Speech: Normal Motor strength normal: LUE, RUE, LLE, RLE Sensory: Normal - Psychological Associated symptoms: Normal affect, Normal mood - Skin Skin Temperature: Warm Skin Moisture: Dry Skin Color: Normal Skin irregularity: Abscess - Abscess antecubital was I&D yesterday no redness to the surrounding tissue there is still some drainage. The packing is intact. Patient instructed to remove the packing tomorrow and irrigate the site. Location of irregularity: Extremities - Antecubital right Course - Re-evaluation Re-evalutation: 09/10/16 14:10 mission planner contacted to attempt to get Keflex for patient for her infected abscess to the right antecubital. He will call me back. 09/10/16 14:31 mission planner at bedside. 09/10/16 15:26 Patient instructed that Keflex is on the $4 list at [facility] and for her to please fill her prescription and take the medication. - Vital Signs Vital signs: Temp Pulse Resp BP Pulse Ox 98.6 F 81 16 117/72 96 09/10/16 14:58 09/10/16 14:58 09/10/16 14:58 09/10/16 14:58 09/10/16 14:58 Discharge - Discharge Clinical Impression: Abscess of right arm Condition: Stable Disposition: HOME, SELF-CARE Instructions: Family Physicians / Practices Additional Instructions: ABSCESS: You have an abscess (boil). This a pus-forming infection, usually due to staph. Some boils may be left to drain on their own, but most require lancing. From the time the tender lump first appears, it may be three or four days before the abscess is ready to emma. Local heat and rest help at this stage of treatment. An antibiotic may prevent spread of the infection. Once the abscess is opened, packing may be placed into it. This is done so pus is not sealed inside by premature closure of the cavity. The packing will be removed at your follow-up visit or you may be advised to remove it yourself at home. Sometimes this packing must be replaced a few times during healing. The wound will heal with surprisingly little scar. Depending on the size and location of an abscess, healing can take one to four weeks. You may shower and wash the area around the incision site two or three times a day. Antibiotics may be prescribed, but are usually not necessary after an abscess has been drained. If you develop fever, chills, worsening pain, or increasing swelling in the area, call the doctor or return immediately. CEPHALEXIN: The antibiotic you've been prescribed is a member of the cephalosporin class. This type of antibiotic covers a wide variety of infections, including those of the skin, lungs, and urinary tract. It's useful for staph infections. This antibiotic is slightly similar to the penicillin family. In rare cases , a person who is allergic to penicillin will also be allergic to this medication. If you have had a severe allergic reaction to penicillin, and have not taken this antibiotic since that time, notify your doctor. Antibiotics which cover many germs ("broad spectrum" antibiotics) are more likely to cause diarrhea or "yeast" infections. Women prone to vaginal yeast problems may suffer an attack after taking this antibiotic. In infants, oral thrush (white spots "stuck" on the cheek) or yeast diaper rash may result. See your doctor if these problems occur. Call at once if you develop itching, hives , shortness of breath, or lightheadedness. TRIMETHOPRIM-SULFA: Continue your prescription You have been given a prescription for trimethoprim-sulfa (TMS, Septra, Bactrim). This is a combination antibiotic of the sulfa class, often used for urinary tract infections, middle ear infections, bronchitis, shigella intestinal infection, and Pneumocystis pneumonia. TMS is usually well-tolerated. Occasional side effects include nausea and decreased appetite. Septra is not recommended for infants less than two months of age. Do not take this medication if you have experienced severe side effects or allergy to sulfa medicine. You should stop this medicine at once and contact your physician if you develop any rash, joint pain, shortness of breath, bruising, or jaundice ( yellow color in the skin), or if you develop any other new or unusual symptoms. Please remove the packing tomorrow, will run water directly over the site, irrigate the site in the shower at least twice daily until healed. Return to the ED for any increase in symptoms. FOLLOW-UP CARE: Most simple abscesses will not require a follow up visit. If you had packing placed in the abscess, remove it as instructed by the physician. If you have been referred to a physician for follow-up care, call the physicians office for an appointment as you were instructed or within the next two days. If you experience worsening or a significant change in your symptoms, return to the Emergency Department at any time for re-evaluation. Prescriptions: Cephalexin Monohydrate [Keflex 500 mg Capsule] 500 mg PO QID #20 capsule Forms: Elevated Blood Pressure Referrals: ELDA VERDUGO MD [Primary Care Provider] - Follow up as needed
[2016-09-10 15:01] VITALS: BP 117/72
== END 2016-09-10 15:00 | disposition home or self-care (01) ==
LOC: ER 13:17
DX: L02.413 Cutaneous abscess of right upper limb (principal); F17.210 Nicotine dependence, cigarettes, uncomplicated
CPT/HCPCS: 99282

== ENCOUNTER 2019-04-24 14:04 | Emergency (ER) | payer MEDICAID, OTHER ==
--- NOTE | 2019-04-24 15:09 | ER Document Report ---
ED Medical Screen (RME) - General Chief Complaint: Hand Swelling Stated Complaint: HAND/ARM SWELLING Time Seen by Provider: 04/24/19 15:01 Primary Care Provider: ELDA VERDUGO MD [Primary Care Provider] - Follow up as needed Mode of Arrival: Ambulatory Information source: Patient Notes: This 28-year-old female presents with bilateral hand pain and swelling for the past 10 months. Reports is increased last couple weeks. She did go to [facility] yesterday but she reports that into anything just took blood. She reports she is been told it could be carpal tunnel but she has not followed up with orthopedic. No complaints of fever vomiting diarrhea. I have greeted and performed a rapid initial assessment of this patient. A comprehensive ED assessment and evaluation of the patient, analysis of test results and completion of the medical decision making process will be conducted by additional ED providers. TRAVEL OUTSIDE OF THE [place] IN LAST 30 DAYS: No - Related Data Allergies/Adverse Reactions: ketorolac tromethamine [From Toradol] Allergy (Severe, Verified 04/24/19 15:00) throat and tongue swelling lamotrigine [From Lamictal] Allergy (Severe, Verified 04/24/19 15:00) throat and tongue swelling, headache tramadol [Tramadol] Allergy (Severe, Verified 04/24/19 15:00) Hives & tongue swelling benzonatate [From Tessalon Perles] Adverse Reaction (Mild, Verified 04/24/19 15:00) Vomiting Past Medical History - Social History Family history: Reviewed & Not Pertinent Pulmonary Medical History: Reports: Hx Asthma, Hx Pneumonia - 2013 Denies: Hx COPD Neurological Medical History: Reports: Hx Migraine Renal/ Medical History: Reports: Hx Kidney Stones, Hx Ovarian Cysts - Not substantiated on multiple ultrasounds here. Denies: Hx Peritoneal Dialysis GI Medical History: Reports: Hx Gastroesophageal Reflux Disease Musculoskeltal Medical History: Reports Hx Musculoskeletal Trauma Skin Medical History: Reports Hx Cellulitis Psychiatric Medical History: Reports: Hx Attention Deficit Hyperactivity Disorder, Hx Bipolar Disorder, Hx Depression Traumatic Medical History: Reports: Hx Fractures Past Surgical History: Reports: Hx Cholecystectomy - 10-25-14, Hx Gynecologic Surgery - DNC on August 18. Denies: Hx Mastectomy, Hx Open Heart Surgery - Immunizations Immunizations up to date: Yes Hx Diphtheria, Pertussis, Tetanus Vaccination: Yes - 11/15/12 Physical Exam - Vital signs Vitals: Temp Pulse Resp BP Pulse Ox 98.1 F 68 20 132/60 H 99 04/24/19 14:27 04/24/19 14:27 04/24/19 14:27 04/24/19 14:27 04/24/19 14:27 Course - Vital Signs Vital signs: Temp Pulse Resp BP Pulse Ox 98.1 F 68 20 132/60 H 99 04/24/19 14:27 04/24/19 14:27 04/24/19 14:27 04/24/19 14:27 04/24/19 14:27 Doctor's Discharge - Discharge Referrals: ELDA VERDUGO MD [Primary Care Provider] - Follow up as needed
[2019-04-24 18:17] LABS: APPEARANCE,URINE SLIGHTLY-CLOUDY; BILIRUBIN,URINE NEGATIVE (NEGATIVE); CALCIUM OXALATE CRYSTALS,URINE MODERATE /HPF; COLOR,URINE YELLOW; GLUCOSE, URINE NEGATIVE (NEGATIVE); KETONES,URINE NEGATIVE (NEGATIVE); LEUKOCYTE ESTERASE,URINE NEGATIVE (NEGATIVE); NITRITE,URINE NEGATIVE (NEGATIVE); PROTEIN,URINE NEGATIVE (NEGATIVE)
--- NOTE | 2019-04-24 18:29 | ER Document Report ---
Entered by GINNA WYATT SCRIBE 04/24/19 [id number] Acting as scribe for:SKYLER DANG DO ED General - General Chief Complaint: Hand Swelling Stated Complaint: HAND/ARM SWELLING Time Seen by Provider: 04/24/19 15:01 Primary Care Provider: ELDA VERDUGO MD [Primary Care Provider] - Follow up as needed Mode of Arrival: Ambulatory Information source: Patient Notes: This right-handed 28-year-old female presents to the emergency department complaining of bilateral hand swelling that began in May (11 months ago). Patient stated that swelling has gotten progressively worse in the past couple of weeks. Patient reports associated blue spots on her arms since symptoms started. She explains that her left hand has worse swelling compared to her right and that is it mildly better now. Patient reports chills. Patient denies fever, vomiting and diarrhea. Patient states that she was diagnosed with carpal tunnel 11 months ago and hand swelling has started since then. She has seen an orthopedic doctor for her hand swelling and she is awaiting a call to make an appointment for a nerve test. Patient mentions that 2-3 times a month, "my burps are smelling like my farts". Patient is a former IV drug user. TRAVEL OUTSIDE OF THE [place] IN LAST 30 DAYS: No - Related Data Allergies/Adverse Reactions: ketorolac tromethamine [From Toradol] Allergy (Severe, Verified 04/24/19 15:00) throat and tongue swelling lamotrigine [From Lamictal] Allergy (Severe, Verified 04/24/19 15:00) throat and tongue swelling, headache tramadol [Tramadol] Allergy (Severe, Verified 04/24/19 15:00) Hives & tongue swelling benzonatate [From Tessalon Perles] Adverse Reaction (Mild, Verified 04/24/19 15:00) Vomiting Past Medical History - General Information source: Patient - Social History Smoking Status: Current Every Day Smoker Cigarette use (# per day): Yes Chew tobacco use (# tins/day): No Frequency of alcohol use: None Drug Abuse: None Family History: Arthritis, CAD, CVA, DM, Hyperlipidemia, Hypertension, Malignancy, Thyroid Disfunction Patient has suicidal ideation: No Patient has homicidal ideation: No Pulmonary Medical History: Reports: Hx Asthma, Hx Pneumonia - 2013 Neurological Medical History: Reports: Hx Migraine Renal/ Medical History: Reports: Hx Kidney Stones, Hx Ovarian Cysts - Not substantiated on multiple ultrasounds here GI Medical History: Reports: Hx Gastroesophageal Reflux Disease Musculoskeletal Medical History: Reports Hx Musculoskeletal Trauma Skin Medical History: Reports Hx Cellulitis Psychiatric Medical History: Reports: Hx Attention Deficit Hyperactivity Disorder, Hx Bipolar Disorder, Hx Depression Traumatic Medical History: Reports: Hx Fractures Past Surgical History: Reports: Hx Cholecystectomy - 10-25-14, Hx Gynecologic Surgery - DNC on August 18 - Immunizations Immunizations up to date: Yes Hx Diphtheria, Pertussis, Tetanus Vaccination: Yes - 11/15/12 Hx Pneumococcal Vaccination: 11/15/12 Review of Systems - Review of Systems Constitutional: See HPI, Chills. denies: Fever EENT: No symptoms reported Cardiovascular: No symptoms reported Respiratory: No symptoms reported Gastrointestinal: See HPI. denies: Nausea, Vomiting Genitourinary: No symptoms reported Female Genitourinary: No symptoms reported Musculoskeletal: See HPI, Other - Bilateral Hand swelling Skin: No symptoms reported Hematologic/Lymphatic: No symptoms reported Neurological/Psychological: No symptoms reported -: Yes All other systems reviewed and negative Physical Exam - Vital signs Vitals: Temp Pulse Resp BP Pulse Ox 98.1 F 68 20 132/60 H 99 04/24/19 14:27 04/24/19 14:27 04/24/19 14:27 04/24/19 14:27 04/24/19 14:27 - Notes Notes: Physical Exam: General: Alert, appears well. HEENT: Normocephalic. Atraumatic. PERRL. Extraocular movements intact. Oropharynx clear. Neck: Supple. Non-tender. Respiratory: No respiratory distress. Clear and equal breath sounds bilaterally. Cardiovascular: Regular rate and rhythm. Abdominal: Normal Inspection. Non-tender. No distension. Normal Bowel Sounds. Back: No gross abnormalities. Extremities: Moves all four extremities. Upper extremities: Normal ROM. Bilateral mild soft tissue edema in dorsal region of hands. Normal circulation and normal sensation. Lower extremities: Normal inspection. No edema. Normal ROM. Neurological: Normal cognition. AAOx4. Normal speech. Psychological: Normal affect. Normal Mood. Skin: Warm. Dry. Normal color. Course - Re-evaluation Re-evalutation: 04/24/19 19:34 MDM 28 year old with forearm/ wrist pain. Former IVDA. She has clean for a while she says. No circulatory issue looking at hands. CBC normal. Discussed follow up with Rheumatology and Ortho and she expressed understanding. - Vital Signs Vital signs: Temp Pulse Resp BP Pulse Ox 98.1 F 68 20 132/60 H 99 04/24/19 14:27 04/24/19 14:27 04/24/19 14:27 04/24/19 14:27 04/24/19 14:27 - Laboratory Result Diagrams: 04/24/19 18:33 04/24/19 18:33 Laboratory results interpreted by me: 04/24/19 04/24/19 16:04 18:33 RBC 5.46 H Lymph % (Auto) 56.4 H Seg Neutrophils % 34.3 L Urine Urobilinogen 2.0 H Discharge - Discharge Clinical Impression: Pain, hand Qualifiers: Laterality: bilateral Qualified Code(s): M79.641 - Pain in right hand; M79.642 - Pain in left hand Condition: Good Disposition: HOME, SELF-CARE Instructions: Carpal Tunnel Syndrome ([facility]) Additional Instructions: See orthopedics and rheumatology in follow up. Rest. Tylenol for pain. Return here for fever redness, streaking or other problems or concerns. Referrals: ELDA VERDUGO MD [Primary Care Provider] - Follow up as needed I personally performed the services described in the documentation, reviewed and edited the documentation which was dictated to the scribe in my presence, and it accurately records my words and actions.
[2019-04-24] MEDS ORDERED: SUCRALFATE 1 GM TABLET PO ONE (18:40)
[2019-04-24 18:42] LABS: URINE BARBITURATES SCREEN NEGATIVE; URINE BENZODIAZEPINES SCREEN NEGATIVE; URINE COCAINE SCREEN NEGATIVE; URINE MARIJUANA (THC) SCREEN NEGATIVE; URINE METHADONE SCREEN NEGATIVE; URINE PHENCYCLIDINE SCREEN NEGATIVE
[2019-04-24 18:44] LABS: URINE AMPHETAMINES SCREEN UNCONFIRMED POSITIVE
[2019-04-24 19:02] LABS: ABSOLUTE BASOPHILS # (AUTO) 0.1 10^3/uL (0.0-0.2); ABSOLUTE EOSINOPHILS # (AUTO) 0.2 10^3/uL (0.0-0.6); ABSOLUTE LYMPHOCYTES (AUTO) 3.8 10^3/uL (0.5-4.7); ABSOLUTE MONOCYTES (AUTO) 0.4 10^3/uL (0.1-1.4); ABSOLUTE NEUT (AUTO) 2.3 10^3/uL (1.7-8.2); BASOPHILS % (AUTO) 0.9 % (0-2); EOSINOPHILS % (AUTO) 3.2 % (0-6); HEMATOCRIT 44.9 % (36.0-47.0); HEMOGLOBIN 15.3 g/dL (12.0-15.5); LYMPHOCYTES % (AUTO) 56.4 % (13-45); MEAN CORPUSCULAR HEMOGLOBIN 28.1 pg (27.0-33.4); MEAN CORPUSCULAR HGB CONC 34.2 g/dL (32.0-36.0); MEAN CORPUSCULAR VOLUME 82 fl (80-97); MONOCYTES % (AUTO) 5.2 % (3-13); PLATELET COUNT 269 10^3/uL (150-450); RED BLOOD COUNT 5.46 10^6/uL (3.72-5.28); SEGMENTED NEUTROPHILS % (AUTO) 34.3 % (42-78); TOTAL CELLS COUNTED % (AUTO) 100 %; WHITE BLOOD COUNT 6.7 10^3/uL (4.0-10.5)
[2019-04-24 19:54] VITALS: BP 130/76
== END 2019-04-24 19:55 | disposition home or self-care (01) ==
LOC: ER 14:04
DX: M79.641 Pain in right hand (principal); M79.642 Pain in left hand; M25.539 Pain in unspecified wrist; M79.639 Pain in unspecified forearm; R60.0 Localized edema; R68.83 Chills (without fever); J45.909 Unspecified asthma, uncomplicated; F17.210 Nicotine dependence, cigarettes, uncomplicated; Z88.8 Allergy status to other drugs, medicaments and biological substances
CPT/HCPCS: 99283; 36415; 85025; 81025; 81001; 80307; J3490